=== PATIENT | female | born 1960 ===

== ENCOUNTER 2018-06-22 07:40 | Outpatient (CLI) | payer OTHER ==
[~2018-06-22] VITALS: Ht 157.5 cm; Wt 65.8 kg
== END 2018-06-22 08:00 | disposition home or self-care (01) ==
LOC: OFIC 805 07:40
DX: H93.13 Tinnitus, bilateral (principal); H90.3 Sensorineural hearing loss, bilateral

== ENCOUNTER 2018-09-06 07:47 | Outpatient (CLI) | payer OTHER ==
[~2018-09-06] VITALS: Ht 152.4 cm; Wt 65.8 kg
== END 2018-09-06 08:10 | disposition home or self-care (01) ==
LOC: OFIC 805 07:47
DX: H93.13 Tinnitus, bilateral (principal); H91.8X3 Other specified hearing loss, bilateral; J30.89 Other allergic rhinitis